=== PATIENT | female | born 1935 | race Caucasian/White ===

== ENCOUNTER 2016-07-29 07:29 | Day surgery (SDC) | payer MEDICARE, OTHER ==
--- NOTE | 2016-07-28 08:08 | PREOP HISTORY & PHYSICAL ---
HISTORY: 80 year old female with macular degeneration and a cataract OD - here for evaluation of declining distance vision over time. She notes more blurring when driving (seeing distant road signs) as well as more trouble seeing to read (needs stronger lights). She is having more trouble seeing the scrolling wilmar on the television. The current glasses are from 2013 (made at [facility] in [place]). 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 Visually significant cataract OD , History of scintillating scotomas, Posterior vitreous detachment OD, Mixed astigmatism and presbyopia, Upper lid blepharoplasty OU 11/27/2015 (Dr. Paulino Fernandez) OCULAR MEDICATIONS: Anti-oxidant vitamin therapy daily (AREDS 2), Artificial tears prn OU PAST MEDICAL HISTORY: Allergic rhinitis (477.9) (J30.9) Cataract, nuclear sclerotic, right eye (H25.11) Visually significant cataract OD. 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 ALLERGIES: NKA NKDA FAMILY HISTORY: Mother History of macular degeneration. Sister History of "wet" macular degeneration. SOCIAL HISTORY: Alcohol use Drinks wine. 2 glasses daily. Non Smoker/No Tobacco Use quit iin 1965 Vehicle Driving Yes. CURRENT MEDICATIONS: Aspirin (81MG Tablet, 1 TABLET Oral Daily) Active. (Patient reports she only takes this 2 - 3 times a week) Ocuvite-Lutein (1 Oral two times daily) Active. B Complex Formula 1 (Oral daily) Specific dose unknown - Active. Vitamin D (Oral daily) Specific dose unknown - Active. Medications Reconciled PAST MEDICAL SURGERY: Cholecystectomy 2012 (Dr. Becerra). Hysterectomy; [id number] Tonsillectomy as a child REVIEW OF SYSTEMS: General Not Present- Fever. Skin Not Present- New Lesions, Skin Cancer and Skin Problems. HEENT Present- Blurred Vision. Not Present- Decreased Hearing, Eye Pain, Sinusitis and Sleep Apnea. Respiratory Not Present- Asthma, Chronic Cough, Emphysema and Shortness of Breath. Breast Not Present- Breast Cancer. Cardiovascular Present- Hyperlipidemia. Not Present- Angina, Heart Problems, Heart Stent and Hypertension. Gastrointestinal Not Present- Heartburn and PUD. Female Genitourinary Not Present- Kidney Problems. Musculoskeletal Not Present- Joint Pain. Neurological Not Present- Decreased Memory, Headaches, Stroke and Vertigo. Psychiatric Not Present- Anxiety and Depression. Endocrine Not Present- Diabetes and Thyroid Problems. Hematology Not Present- Bleeding Problems and Blood Clots. PHYSICAL EXAMINATION: Vitals (Anthony Wade M.D.; 07/13/2016 5:17 PM) 07/13/2016 5:16 PM Pulse: 72 (Regular) P.OX: 92% (Room air) BP: 123/81 (Sitting, Left Wrist, Small) Chest and Lung Exam Auscultation Breath sounds - Clear and Symmetric throughout. Cardiovascular Auscultation Rhythm - Regular. Heart Sounds - Normal heart sounds. Murmurs & Other Heart Sounds - Auscultation of the heart reveals - No Murmurs. OCULAR EXAMINATION: VISUAL ACUITY: with correction (Glasses) OD 20/100-1 OS 20/30-2 NEAR J2 at 14" WORKING Rx: OD +0.25 + 0.50 x 086 OS -1.00 + 1.00 x 094 ADD + 2.00 (Trifocal) MANIFEST REFRACTION: OD -1.00 Sphere (20/50-1) Better vision in trial frames OS -0.25 + 1.00 x 105 (20/25) Slightly better vision in trial frames ADD + 2.50 (J1+ at 14") Better near vision in trial frames than previous Rx CONFRONTATIONAL VISUAL VERDE: Normal to counting fingers in four quadrants OU PUPILS: Round and equal OU with no afferent pupillary defect seen EXTERNAL: Normal OU (nice result after upper lid blepharoplasty OU) EXTRA-OCULAR MUSCLES: Versions full OU - orthotropic at both distance and near SLIT LAMP EXAM: LIDS/LASHES: Normal OU CONJUNCTIVA: Quiet OU CORNEA: Clear with scant tear film OU AC: Deep and quiet OU IRIS: Normal OU PUPILS: Round OU - dilated to about 5-6 mm OU LENS: 3+ very dense yellow-brown nuclear sclerosis with 2+ cortical cataract changes OD. Central PC IOL with 1-2+ peripheral posterior capsular haze OS ( not in the visual axis OS) ANTERIOR VITREOUS: No anterior vitreous cells or pigment seen OU TONOMETRY: TIME: 1:51 PM OD: 14 mm Hg OS: 11 mm Hg DILATING gtt: Phenylephrine 2.5% + Tropicamide 1% FUNDUS: C/D: 0.0 (crowded discs) OU DISCS: Sharp with clear disc margins OU MACULA: Moderate central pigmentary disturbance OU with scattered hard and soft drusen OU. Large central druse OU. No evidence of choroidal neovascularization OU VESSELS: Normal OU with significant scattered equatorial drusen OU PERIPHERY: Posterior vitreous detachment OU with no retinal breaks seen KERATOMETRY: OD 45.85 / 47.15 x 068 OS 45.81 / 47.98 x 090 AXIAL LENGTH: OD 22.91 +/- 0.018 OS 22.90 +/- 0.011 IMPRESSION: Cataract, nuclear sclerotic, right eye (H25.11) Story: Visually significant cataract OD - note further myopic shifting and density of the cataract OD. Discussed with patient today who would like to proceed with cataract surgery OD. She understands that the macular degeneration will very likely somewhat limit the visual acuity after cataract surgery OD. We discussed the refractive goals today and the patient would like to be corrected to a near-plano spherical equivalent postoperatively OD. Macular degeneration, age related, nonexudative (H34.5838) Story: Dry age-related macular degeneration OU - Discussed with patient today and I let her know that macular degeneration will likely limit her visual acuity after cataract surgery. 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 PLAN: Cataract extraction with intra-ocular lens OD, July 29, 2016. Lid soaks and scrubs BID OU (pre-operative blepharitis protocol and antibiotic ointment instructions handout given to patient today). Erythromycin ophthalmic ointment q hs OU as blepharitis prophylaxis (an e-Rx with refills x 1 was sent to [facility] in [place] ([phone] ) today). DEONTE
[~2016-07-29 07:29] MED LIST: APRACLONIDINE 0.5% OPHTH 5 ML BTL OP PRN; BUPIVACAINE HCL/PF 0.75% 10 ML VIAL OP PRN; CIPROFLOXACIN 0.3% OPHTH 50 DROP/5 ML BTL OP SCH; CYCLOPENTOLATE HCL 1% OPHTH 2 ML BTL OP SCH; FLURBIPROFEN 0.03% OPHTH 2.5 ML BTL OP SCH; PHENYLEPHRINE 2.5% OPHTH 10 DROP/2 ML BTL OP SCH
[2016-07-29 07:47] VITALS: RESP 16; TEMP 96.8
[2016-07-29] MEDS ORDERED: BUPIVACAINE HCL/PF 0.75% 10 ML VIAL ONE (07:50)
[2016-07-29] MEDS ORDERED: APRACLONIDINE 0.5% OPHTH 5 ML BTL ONE (07:50)
[2016-07-29] MEDS ORDERED: KETOROLAC 0.45% OPHTH 1 DROP/EACH DROPERETTE ONE (08:13)
[2016-07-29] MEDS ORDERED: BACITRACIN OPHTH OINTMENT 3.5 GM TUBE ONE (08:13)
[2016-07-29] MEDS ORDERED: LIDOCAINE HCL/PF 1% 30 ML VIAL ONE (08:13)
[2016-07-29] MEDS ORDERED: CHONDROITIN/HYALURONIDATE OPHT 0.5 ML KIT ONE (08:14)
[2016-07-29] MEDS ORDERED: MIDAZOLAM HCL 2 MG/2 ML VIAL ONE (08:52)
[2016-07-29 09:41] VITALS: BP 121/96; PULSE 66; O2SAT 93
--- NOTE | 2016-07-29 13:01 | OPERATIVE REPORT ---
DATE OF SURGERY: 07/29/2016. SURGEON: Anthony Wade MD ANESTHESIA: Topical with monitored anesthesia care. PREOPERATIVE DIAGNOSIS: Cataract, right eye. POSTOPERATIVE DIAGNOSIS: Cataract, right eye. OPERATION PERFORMED: Cataract extraction by phacoemulsification with posterior chamber intraocular lens, right eye. COMPLICATIONS: None. PROCEDURE: The patient was brought to the operating room where she was placed in the supine position. After the instillation of additional tetracaine drops in the right eye, the eye was prepped and draped in the usual sterile ophthalmic manner. A lid speculum was placed in the right eye, after which an inferior paracentesis was fashioned with 1-mm steel keratome, and 0.2 mL of 1% nonpreserved lidocaine was injected intracamerally followed by Viscoat. A temporal clear corneal incision of 3-mm width was fashioned with a steel keratome. A continuous curvilinear capsulorrhexis was fashioned with a bent- needle cystitome and Utrata forceps under Viscoat. Hydrodissection was carried out with balanced salt solution on an intraocular cannula. The nucleus was noted to rotate freely. Phacoemulsification proceeded in a two-handed fashion utilizing high phacoemulsification times and arteaga, as the nucleus was noted to be 3+ dense. Residual cortical material was then removed with the automated irrigation-aspiration handpiece. The anterior chamber and capsular bag were then reinflated with Provisc, after which an AcrySof model SA60AT foldable acrylic intraocular lens of 20.0 diopters power was placed into the capsular bag. The haptics were rotated with a Y hook and the intraocular lens was noted to center well. Residual viscoelastic was then removed with the automated irrigation-aspiration handpiece , after which the wound edges were hydrated with balanced salt solution. The intraocular pressure at the conclusion of the procedure was physiologic, and there was no evidence of wound leakage upon testing with a Weck Corrine sponge. Acular drops and bacitracin ointment were placed in the right eye, and the patient was brought to the recovery area, having tolerated the procedure well. She was given full postoperative instructions. DEONTE
== END 2016-07-29 09:51 | disposition home or self-care (01) ==
LOC: SDS 07:29
PROVIDERS: ATTEND Ophthalmology
DX: H25.11 Age-related nuclear cataract, right eye (principal); K57.90 Diverticulosis of intestine, part unspecified, without perforation or abscess without bleeding; H35.3190 Nonexudative age-related macular degeneration, unspecified eye, stage unspecified; K21.9 Gastro-esophageal reflux disease without esophagitis; H53.129 Transient visual loss, unspecified eye; J30.9 Allergic rhinitis, unspecified
CPT/HCPCS: 66984; J0171; J2250; V2632